=== PATIENT | female | born 1970 | race Two or more races ===

== ENCOUNTER → 2016-11-08 | Day surgery (SDC) | payer OTHER ==
--- NOTE | 2016-11-11 14:47 | PATH ---
Surgical Pathology Report Patient Name: EMMA PEREIRA [facility]. Rec. #: [id number] /Age/Gender: 1970 (Age: 46) / F Account: [id number] Location: [facility] Taken: 11/08/2016 Received: 11/08/2016 Reported: 11/11/2016 Physicians: Cherry Holden Specimen(s) Received BREAST CORE BIOPSY LEFT 9:30 4-5 CMFN Clinical History US: probably benign Final Diagnosis BREAST, LEFT, 9:30, 4-5 CM FROM NIPPLE, US GUIDED CORE BIOPSY: FIBROCYSTIC CHANGE WITH USUAL DUCTAL HYPERPLASIA, FOCAL SCLEROSING ADENOSIS, DUCT DILATATION, CYSTS FORMATION AND DENSE STROMAL FIBROSIS. Comment: Immunohistochemical stains performed and interpreted at [facility] show the following: SMM-HC and p63 immunostains highlight preserved myoepithelial cells; Ae1/Ae3 keratin highlights ductal epithelium. These results are supportive of the interpretation above. Electronically Signed Serafin Cormier M.D. Gross Description Received in formalin labeled "left breast 9:30 4-5 cmfn," are 6 keenan-yellow, cylindrical portions of fibroadipose tissue ranging from 0.6-1.5 cm in length and averaging 0.1 cm in diameter. The specimen is submitted in toto in one cassette. Time to formalin fixation: 2 minutes Total formalin fixation time: Approximately 7 hours 11/08/2016
== END | disposition home or self-care (01) ==
LOC: FRADUS-SUR 13:41
PROVIDERS: ATTEND Physician Assistant
PROC: 0HBU3ZX Excision of Left Breast, Percutaneous Approach, Diagnostic (ICD-10-PCS; principal; 2016-11-08)
DX: N63 Unspecified lump in breast (principal); N60.82 Other benign mammary dysplasias of left breast; N60.22 Fibroadenosis of left breast; N60.32 Fibrosclerosis of left breast; N60.02 Solitary cyst of left breast; N64.89 Other specified disorders of breast
CPT/HCPCS: 19083; 87899; 88305-TC; 88341-TC; 88342-TC; A4648; G0206-TC

== ENCOUNTER 2017-01-11 06:27 | Emergency (ER) | payer OTHER ==
[2017-01-11 07:27] VITALS: BMI 25.7
[2017-01-11] MEDS ORDERED: ALBUTEROL SO4 2.5/IPRATROPIUM 0.5 INH SOL 3 ML VIAL.NEB. NEB STA (07:30)
--- NOTE | 2017-01-11 07:42 | PDOC ---
History of Present Illness - General Chief Complaint: Cold Symptoms Stated Complaint: COLD Time Seen by Provider: 01/11/17 07:14 History Source: Patient Exam Limitations: No Limitations - History of Present Illness Initial Comments: 01/11/17 07:41 46 year old female with PMH of asthma presenting with 3 days history of occasionally productive cough, coryza, congestion, fevers, myalgias, and headaches. She became symptomatic 3 days ago on Friday night with a cough with yellow production and some congestion. Her symptoms progressed to fevers, chills, myalgias, nausea, vomiting, and headaches on at which point she called her primary care physician. She was prescribed azithromycin, guafenasin, ibuprofen, and cetirizine with only minor improvement. She hasn't had fevers since but admits that her symptoms haven't improved overall. Admits to some ocassional chest pain, non radiating that began after a severe bout of coughing last night worsened with cough. She is also complaining of some difficulty breathing occasionally that is only mildly relived by her inhaler. Denies diarrhea, constipation, hemoptysis, hematuria, palpitations, visual changes, neck stiffness, arthralgias. Her PCP is Dr. Jeronimo and Dr. Jacinto. Past History - Past Medical History Allergies/Adverse Reactions: Allergies Allergy/AdvReac Type Severity Reaction Status Date / Time No Known Allergies Allergy Verified 12/27/14 17:22 Home Medications: Ambulatory Orders Albuterol 0.083% Nebulizer Mery [Ventolin 0.083% Nebulizer Soln -] 1 neb NEB Q6H #30 vial 01/11/17 Albuterol Sulfate Inhaler - [Ventolin Hfa Inhaler -] 1 - 2 inh PO Q4H PRN Nebulizer/Compressor [Comp-Air Elite Comp Nebulizer] 1 each ASDIR PRN #1 each 01/11/17 Asthma: Yes Cancer: No Cardiac Disorders: No Diabetes: No HTN: No Seizures: No Thyroid Disease: No - Surgical History Abdominal Surgery: Yes - Immunization History Td Vaccination: Yes - Psycho/Social/Smoking Cessation Hx Anxiety: No Suicidal Ideation: No Smoking Status: No Smoking History: Never smoked Have you smoked in the past 12 months: No Number of Cigarettes Smoked Daily: 0 Information on smoking cessation initiated: No Hx Alcohol Use: No Drug/Substance Use Hx: No Substance Use Type: None Hx Substance Use Treatment: No Review of Systems - Review of Systems Constitutional: Yes: Chills, Fever, Loss of Appetite. No: Diaphoresis HEENTM: Yes: Eye Pain, Nose Congestion Respiratory: Yes: Shortness of Breath, Productive cough. No: Wheezing, Hemoptysis Cardiac (ROS): Yes: Chest Tightness. No: Lightheadedness, Palpitations, Syncope ABD/GI: Yes: Poor Appetite. No: Abdominal Distended, Constipated, Diarrhea, Abdominal cramping : No: Frequency, Hematuria, Incontinence Musculoskeletal: Yes: Back Pain, Muscle Pain. No: Joint Pain, Neck Pain, Joint Stiffness Integumentary: No: Erythema, Rash Neurological: Yes: Headache. No: Numbness, Paresthesia, Weakness *Physical Exam - Vital Signs Last Vital Signs Temp Pulse Resp BP Pulse Ox 100.2 F H 75 20 105/75 99 01/11/17 07:01 01/11/17 07:01 01/11/17 07:01 01/11/17 07:01 01/11/17 07:01 - Physical Exam General Appearance: Yes: Appropriately Dressed, Mild Distress HEENT: positive: Normal Voice. negative: Pharyngeal Erythema Respiratory/Chest: positive: Chest Tender (Over site of pain on left side), Lungs Clear (Clear but with poor air movement at left base) Cardiovascular: positive: Regular Rhythm, Regular Rate, S1, S2. negative: Edema , JVD, Murmur Gastrointestinal/Abdominal: positive: Normal Bowel Sounds, Flat, Soft. negative : Tender, Organomegaly Extremity: positive: Normal Capillary Refill Integumentary: positive: Dry, Warm. negative: Erythema, Jaundice, Mottled, Pale , Cold Neurologic: positive: Fully Oriented, Alert, Normal Mood/Affect Medical Decision Making - Critical Care Time Total Critical Care Time (minutes): 15 - Medical Decision Making 01/11/17 08:02 Relatively healthy 46 year old asthmatic presenting with viral symptoms for the past three days including fever, chills, cough, coryza and congestion. This is most likely an upper respiratory viral syndrome given the symptoms and timeline. Will treat with duonebs, po fluids, tylenol 650, and a obtain a rapid flu swab. 01/11/17 09:12 Patient feeling better after nebs and Tylenol. Flu swab negative, will send home to continue treatment and add on a prescription for a nebulizer machine. *DC/Admit/Observation/Transfer Diagnosis at time of Disposition: Acute viral syndrome - Discharge Dispostion Disposition: HOME Condition at time of disposition: Improved Admit: No - Prescriptions Prescriptions: Nebulizer/Compressor [Comp-Air Elite Comp Nebulizer] 1 each MC ASDIR PRN #1 each PRN Reason: congestion Albuterol 0.083% Nebulizer Mery [Ventolin 0.083% Nebulizer Soln -] 1 neb NEB Q6H #30 vial - Referrals Referrals: William Le PA [Primary Care Provider] - - Patient Instructions Printed Discharge Instructions: How to Avoid a Cold or Flu, DI for Common Cold Additional Instructions: You were seen for cough, headache, and muscle pains. This is most likely a viral illness. Please take your medications as prescribed from your primary care physician. 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 Please return if you do not have improvement of symptoms in 2-3 days or if you have worsening fevers, worsening cough, or worsening body pains. Print Language: INDONESIAN - Attestations Physician Attestion: 01/11/17 09:26 I, Dr. Gretel Harris, attest that this document has been prepared under my direction and personally reviewed by me in its entirety. I further attest, that it accurately reflects all work, treatment, procedures and medical decision -making performed by me.
[2017-01-11] MEDS ORDERED: ACETAMINOPHEN 650 MG/20.3 ML ORAL SOLUTION (CUPS) ONE (07:51)
[2017-01-11] MEDS ORDERED: ACETAMINOPHEN 325 MG TABLET (FP) PO ONE (07:59)
--- NOTE | 2017-01-11 08:13 | PDOC ---
Attending Attestation - Resident Resident Name: Gretel Harris - ED Attending Attestation I have performed the following: I have examined & evaluated the patient, The case was reviewed & discussed with the resident, I agree w/resident's findings & plan, Exceptions are as noted - HPI HPI: 01/11/17 08:12 46 yo F otherwise healthy presenting to the ER with a complaint of myalgias, headaches, cough, intermittent fevers Seen by PMD who started treatment Pt presents to the ER because she continues to have symptoms
[2017-01-11 10:01] VITALS: BP 99/65; PULSE 91
[2017-01-11 10:02] VITALS: TEMP 98.6
== END 2017-01-11 10:01 | disposition home or self-care (01) ==
LOC: JER 06:27
PROC: 3E0F7GC Introduction of Other Therapeutic Substance into Respiratory Tract, Via Natural or Artificial Opening (ICD-10-PCS; principal; 2017-01-11)
DX: J45.909 Unspecified asthma, uncomplicated (principal); B34.9 Viral infection, unspecified
CPT/HCPCS: 87804; 94640; 99282-25